=== PATIENT | female | born 1950 | race African-American/Black ===

== ENCOUNTER 2016-06-04 15:14 | Inpatient (IN) | payer OTHER ==
[2016-06-04] MEDS: NORCO-7.5 PO PRN (20:15)
[2016-06-04] MEDS: NEURONTIN PO SCH (20:15)
[2016-06-04] MEDS: SOLU-MEDROL IV SCH (20:16)
[2016-06-04] MEDS: LEVAQUIN 500 MG/D5W 100 ML IV SCH (20:16)
[2016-06-04] MEDS: NS 1,000 ML IV SCH (20:16)
[2016-06-04] MEDS: ROCEPHIN 1 GM/NS 50 ML IV SCH (20:16)
[2016-06-04] MEDS: LOVENOX SUBQ SCH (20:16)
[2016-06-04] MEDS: PROTONIX IV SCH (20:16)
[2016-06-04 20:23] LABS: ALLEN TEST YES; BE 0.9 mmoll (-3.0-3.0); BLOOD TYPE ARTERIAL; DRAW SITE R RADIAL; METHB 1.8 % (0.0-1.5); O2(CT) 19.2 mL/dL (15.0-23.0); PCO2(98.6) 39 mmHg (35-45); PO2(98.6) 72 mmHg (60-100); SAMPLE BLOOD; SAO2 97.7 % (95.0-100.0); THB 14.6 g/dL (11.5-17.4); pH(98.6) 7.42 (7.35-7.45)
[2016-06-04 20:24] LABS: MODALITY ROOM AIR
[2016-06-04] MEDS: DUONEB (A & A) INH PRN (20:25)
--- NOTE | 2016-06-04 21:32 | HISTORY AND PHYSICAL ---
CHIEF COMPLAINT: Cough. Congestion. Upper respiratory infection symptoms for the last 2 days. HISTORY OF PRESENT ILLNESS: She is a 65-year-old female recently seen in our office yesterday for URI symptoms. Initial chest x-ray was clear. She was given steroid shot followed by Rocephin shot. She fails to improve, was brought in. She is not able to walk and exertional shortness of breath, cough, and wheezing. Followup chest x-ray, questionable infiltrate. Since she failed with outpatient medical management, admitted to the hospital for aggressive medical management. She also waiting for flu test. In my office, she is tachycardic, no fever. Pulse oximetry 96%. She was brought in the wheelchair. As a result, a hospital admission was warranted. PAST MEDICAL HISTORY: 1. Allergic rhinitis. 2. Metabolic syndrome. 3. Type 2 diabetes, diet controlled. 4. Hypertension. 5. Acid reflux disease. 6. Vitamin D deficiency. 7. Chronic back pain. PAST SURGICAL HISTORY: Umbilical hernia repair, right knee arthroscopy, back surgery 2004, C- spine surgery, left shoulder surgery, total knee arthroplasty on the left side. MEDICATIONS: Ambien, Flexeril 10 mg daily, Flonase, Levaquin, losartan 50 daily , [place] 10 as needed, Protonix 40 daily, Proventil as needed. ALLERGIES: Not known. SOCIAL HISTORY: Lives in [place]. No smoking. No alcohol. Retired. Single. 3 children. FAMILY HISTORY: Mother of asthma attack at 55. Father of old age problems. HEALTH MAINTENANCE: Last mammography, March 2015, DEXA scan March 2015, Pap smear [address] Winslow, declined influenza vaccine. REVIEW OF SYSTEMS: HEENT: Headache, sinus problems, earache, postnasal drainage. Neck: No goiter. No lymphadenopathy. No bruit. Cardiopulmonary: Wheezing, shortness of breath. No chest pain. No lumps in the breast. GI: No nausea, vomiting, abdominal pain. : No history of hesitancy, frequency. Musculoskeletal: Chronic back pain, on pain clinic. Extremities: No swelling of feet. History of joint pains. Neurologic: No focal symptoms or weakness. PHYSICAL EXAMINATION: VITAL SIGNS: Afebrile, tachycardic. GENERAL: Slightly heavyset. Not in respiratory distress. HEENT: Atraumatic, normocephalic. TMs are normal. Nose and throat congested. NECK: Supple. No goiter. JVD is normal. CHEST: Bilateral wheezing, crackles in the right base. Not able to take a deep breath. HEART: Sounds are tachycardic. No murmur. ABDOMEN: Belly is soft, obese, nontender. Good bowel sounds. No masses palpable. No peripheral edema, cyanosis, clubbing. NEUROLOGIC: Nonfocal. INVESTIGATIONS: ABG: PO2 72 on room air. CBC, SMA 7 is normal. Chest x-ray, early infiltrate in the right lower lobe. Rest of the labs are pending. Flu test was pending. ASSESSMENT AND PLAN: 1. A 65-year-old female, admitted to the hospital basically for URI symptoms. Not able to improve. Early bronchopneumonia, rule out flu. Follow up on the pending labs. Plan is oxygen as needed, bronchodilators, IV steroids, IV antibiotics. 2. Type 2 diabetes, diet controlled. Follow up on sliding scale with insulin coverage. 3. Deep venous thrombosis, gastrointestinal prophylaxis with Lovenox and Protonix respectively. 4. Reconcile home medications and we will follow up on the clinical course. [facility] H[facility]ITALKrissy
[2016-06-04 21:34] LABS: MANUAL DIFF NEEDED? NO
[2016-06-04 21:37] LABS: BASO% 0.2 % (0.0-0.8); HEMATOCRIT 40.7 % (37.0-47.0); HEMOGLOBIN 13.7 g/dL (12.0-16.0); IMM GRAN# 0.02 X1000 (0.0-0.04); IMM GRAN% 0.3 % (0.0-0.5); LYMPH# 0.97 X1000 (1.2-3.4); MCH 29.4 PG (27-31); MCHC 33.7 g/dL (33-37); MCV 87.3 FL (81-99); MONO# 0.13 X1000 (0.11-0.59); MPV 11.8 FL (7.4-10.4); NEUT% 82.5 % (42.2-75.2); PLT 196 X1000 (130-400); RBC 4.66 XMIL (4.2-5.4)
[2016-06-04 21:54] LABS: HEMOGLOBIN A1C 6.9 % (4.8-6.0)
[2016-06-04 22:15] LABS: AGAP 16; ALBUMIN 4.3 g/dL (3.5-5.0); ALKALINE PHOSPHATASE 71 U/L (32-104); BUN 11 mg/dL (8-22); CHLORIDE 102 mmol/L (98-107); COSMO 284; GOT 23 U/L (10-30); GPT 19 U/L (10-36); POTASSIUM 3.8 mmol/L (3.5-5.1); SODIUM 140 mmol/L (136-145); TCO2 22 mmol/L (25-35); TOTAL BILIRUBIN 0.15 mg/dL (0.20-1.00); TOTAL PROTEIN 7.3 g/dL (6.3-8.3)
[2016-06-05] MEDS ORDERED: AMBIEN PO ONE (00:01)
[2016-06-05] MEDS: SOLU-MEDROL IV SCH ×4 (03:23→21:57)
--- NOTE | 2016-06-05 05:18 | EKG Report ---
Test Performed on : 06/04/2016 9:12:28 PM Test Reason : chest pain Blood Pressure : / mmHG Vent. Rate : 110 BPM Atrial Rate : 110 BPM P-R Int : 164 ms QRS Dur : 086 ms QT Int : 344 ms P-R-T Axes : 049 019 -29 degrees QTc Int : 465 ms Sinus tachycardia. Cannot rule out Inferior infarct , age undetermined Abnormal ECG When compared with ECG of 21-JUN-2015 08:26, Minimal criteria for Inferior infarct are now present Nonspecific T wave abnormality, worse in Inferior leads Nonspecific T wave abnormality now evident in Anterolateral leads Confirmed by Josue Fontana MD ([id number]) on 06/05/2016 11:06:27 AM
[2016-06-05] MEDS: HUMALOG SUBQ SCH ×5 (06:36→23:13)
--- NOTE | 2016-06-05 07:33 | Diag Imaging Result Document ---
PROCEDURE NAME: CHEST-2 VIEWS - 06/05/2016 FRONTAL AND LATERAL CHEST, TWO VIEWS: COMPARISON: 06/21/2015. FINDINGS: The lungs are well expanded. The heart is not enlarged. The vessels are not distended. There are no infiltrates. No pleural effusions. There is a calcified left hilar lymph node. IMPRESSION: No acute abnormality.
[2016-06-05] MEDS: NS 1,000 ML IV SCH ×2 (08:17→21:58)
[2016-06-05] MEDS: DUONEB (A & A) INH PRN ×2 (09:26→19:56)
[2016-06-05] MEDS: LEVAQUIN 500 MG/D5W 100 ML IV SCH (10:10)
[2016-06-05] MEDS: NEURONTIN PO SCH ×2 (10:53→21:57)
[2016-06-05] MEDS: CULTURELLE PO SCH (10:53)
[2016-06-05] MEDS ORDERED: ROBITUSSIN-DM PO PRN (11:45)
[2016-06-05] MEDS: NORCO-7.5 PO PRN (12:38)
[2016-06-05] MEDS ORDERED: SODIUM CHLORIDE 0.9% INJ PRN (16:44)
[2016-06-05] MEDS: GLUCOPHAGE PO SCH (18:41)
[2016-06-05] MEDS: PHENERGAN IV PRN (18:42)
[2016-06-05] MEDS ORDERED: AMBIEN PO SCH (21:00)
[2016-06-05] MEDS: ROCEPHIN 1 GM/NS 50 ML IV SCH (21:55)
[2016-06-05] MEDS: SODIUM CHLORIDE 0.9% INJ SCH (21:56)
[2016-06-05] MEDS: AMBIEN PO PRN (21:57)
[2016-06-05] MEDS: PROTONIX IV SCH (21:57)
[2016-06-05] MEDS: LOVENOX SUBQ SCH (21:57)
[2016-06-05 23:55] LABS: CK INDEX 1.1 (0.0-2.5); CK-MB 1.93 ng/mL (0.0-5.0)
[2016-06-06] MEDS: SOLU-MEDROL IV SCH ×3 (04:51→21:00)
[2016-06-06] MEDS: HUMALOG SUBQ SCH ×3 (06:37→18:52)
[2016-06-06] MEDS: NEURONTIN PO SCH ×2 (08:27→20:59)
[2016-06-06] MEDS: CULTURELLE PO SCH (08:27)
[2016-06-06] MEDS: GLUCOPHAGE PO SCH ×2 (08:27→16:38)
[2016-06-06] MEDS: LEVAQUIN 500 MG/D5W 100 ML IV SCH ×2 (08:28→11:56)
[2016-06-06] MEDS: DUONEB (A & A) INH PRN ×3 (09:44→22:52)
[2016-06-06 10:21] LABS: CK-MB 2.14 ng/mL (0.0-5.0)
[2016-06-06] MEDS ORDERED: MBX SOLUTION MT SCH (11:45)
[2016-06-06] MEDS: NS 1,000 ML IV SCH ×2 (11:57→22:34)
--- NOTE | 2016-06-06 12:09 | PROGRESS NOTE ---
DATE: 06/06/2016 SUBJECTIVE: A 65-year-old, female patient admitted with chest congestion, cough, wheezing, chest soreness when she coughs. Not responding to outpatient treatment. The patient is on IV antibiotics. Pulmonary toilet. The patient is feeling some better. The patient is still have some wheezing, heartburn. She did have mild nausea. No vomiting. No diarrhea, blood, or mucus in the stool. She does have a history of reflux. No dysuria or hematuria. PAST MEDICAL HISTORY: 1. Significant for hypertension. 2. Non-insulin dependent diabetes mellitus 3. Gastritis and reflux disease. 4. Vitamin D deficiency. 5. Allergic rhinitis. 6. Metabolic syndrome. Chronic low back pain. OBJECTIVE: Vital Signs: Vital signs reviewed. General: Neck is supple. No JVD. Lungs: Bilateral good air entry present. Occasional wheezing. Cardiovascular: S1 and S2 heard. Abdomen: Soft, globular. Bowel sounds present. Extremities: No cyanosis, clubbing. No acute DVT. Central Nervous System: Alert, awake, able to move all 4 limbs. CONSIDERATION: 1. Acute asthmatic bronchitis. We will continue IV antibiotics. Steroids. Pulmonary toilet. 2. Gastritis and reflux disease. I am going to add Magic mouthwash. 3. Non-insulin dependent diabetes mellitus. 4. Hypertension. 5. Hyperlipidemia. Her admission labs and chest x-ray results reviewed. I am going to repeat blood work in the morning. Continue rest of the treatment and close observation. PLAN: Overall plan discussed with the patient and she is in agreement.
[2016-06-06] MEDS: PHENERGAN IV PRN (16:38)
[2016-06-06 16:45] LABS: CK INDEX 1.1 (0.0-2.5); CK-MB 2.51 ng/mL (0.0-5.0)
[2016-06-06] MEDS: SODIUM CHLORIDE 0.9% INJ SCH (21:00)
[2016-06-06] MEDS: ROCEPHIN 1 GM/NS 50 ML IV SCH (21:00)
[2016-06-06] MEDS: PROTONIX IV SCH (21:01)
[2016-06-06] MEDS: LOVENOX SUBQ SCH (21:01)
[2016-06-06] MEDS: AMBIEN PO PRN (21:17)
[2016-06-07] MEDS: HUMALOG SUBQ SCH ×5 (00:37→21:30)
[2016-06-07] MEDS: SOLU-MEDROL IV SCH ×3 (04:31→20:14)
[2016-06-07 07:41] LABS: AGAP 13; ALBUMIN 3.7 g/dL (3.5-5.0); ALKALINE PHOSPHATASE 71 U/L (32-104); BUN 15 mg/dL (8-22); CALCIUM 8.7 mg/dL (8.8-10.2); CHLORIDE 104 mmol/L (98-107); COSMO 285; GOT 18 U/L (10-30); GPT 16 U/L (10-36); MAGNESIUM 2.1 mg/dL (1.5-2.7); POTASSIUM 4.3 mmol/L (3.5-5.1); SODIUM 140 mmol/L (136-145); TCO2 23 mmol/L (25-35); TOTAL BILIRUBIN 0.16 mg/dL (0.20-1.00); TOTAL PROTEIN 6.6 g/dL (6.3-8.3)
[2016-06-07 07:54] LABS: HEMATOCRIT 40.2 % (37.0-47.0); HEMOGLOBIN 13.7 g/dL (12.0-16.0); IMM GRAN# 0.03 X1000 (0.0-0.04); IMM GRAN% 0.2 % (0.0-0.5); LYMPH# 1.26 X1000 (1.2-3.4); LYMPH% 9.5 % (20.5-51.1); MANUAL DIFF NEEDED? YES; MCH 29.8 PG (27-31); MCHC 34.1 g/dL (33-37); MCV 87.4 FL (81-99); MONO# 0.34 X1000 (0.11-0.59); MONO% 2.6 % (1.7-9.3); MPV 12.4 FL (7.4-10.4); NEUT% 87.7 % (42.2-75.2); PLT 189 X1000 (130-400)
[2016-06-07 08:03] LABS: LYMPHS 6 % (21-51); MONO 2 % (1-9)
[2016-06-07] MEDS: CULTURELLE PO SCH (09:20)
[2016-06-07] MEDS: GLUCOPHAGE PO SCH ×2 (09:20→17:13)
[2016-06-07] MEDS: NEURONTIN PO SCH ×2 (09:20→20:14)
[2016-06-07] MEDS: LEVAQUIN 500 MG/D5W 100 ML IV SCH (09:21)
[2016-06-07] MEDS: NS 1,000 ML IV SCH (09:21)
--- NOTE | 2016-06-07 15:10 | PROGRESS NOTE ---
DATE: 06/07/2016 SUBJECTIVE: Ms Romero is doing fair. She still has cough, chest congestion, wheezing. Complaining of heartburn. No nausea or vomiting. She denied any diarrhea. Patient does have a problem with reflux. Patient had cardiac isoenzymes done yesterday and those were benign. The patient had an EKG done which revealed sinus rhythm with sinus arrhythmia. This was done on June 05. No acute ST-T wave changes. Her flu test done on June 04 was negative for. OBJECTIVE: Vital signs: Reviewed. Neck: Supple. No JVD. Lungs: Bilateral occasional wheezing. CVS: S1 and S2 heard. Abdomen: Soft. Mild epigastric tenderness. Extremities: No cyanosis, clubbing, edema. 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 Able to move all 4 limbs. LAB DATA: Done today, leukocyte count 13.33, hemoglobin 13.7, hematocrit 40.2, platelet count 189,000. Electrolytes were fairly benign. CONSIDERATION: 1. Acute asthmatic bronchitis. 2. Gastritis and reflux disease. 3. Noninsulin-dependent diabetes mellitus. 4. Hypertension. 5. Hyperlipidemia. PLAN: Will continue current treatment. With her vague chest pain I am going to get another set of cardiac isoenzymes. Will get GI consult with Dr. Rodrigues. Continue rest of the medication and close observation.
[2016-06-07] MEDS: PHENERGAN IV PRN (17:14)
[2016-06-07] MEDS: PROTONIX IV SCH (20:13)
[2016-06-07] MEDS: LOVENOX SUBQ SCH (20:13)
[2016-06-07] MEDS: SODIUM CHLORIDE 0.9% INJ SCH (20:13)
[2016-06-07] MEDS: ROCEPHIN 1 GM/NS 50 ML IV SCH (20:14)
[2016-06-07] MEDS ORDERED: ROCEPHIN IM ONE (23:40)
[2016-06-07] MEDS ORDERED: XYLOCAINE-MPF 1% INJ ONE (23:40)
[2016-06-08] MEDS: AMBIEN PO PRN ×2 (00:42→21:58)
--- NOTE | 2016-06-08 04:17 | CONSULTATION ---
DATE OF CONSULTATION: 06/07/2016 REFERRING PHYSICIAN: Madhav Farah MD. INDICATION FOR CONSULTATION: 1. Dysphagia. 2. Heartburn. 3. Nausea. 4. Epigastric pain. 5. History of colon polyps. HISTORY OF PRESENT ILLNESS: The patient is a very pleasant, 65-year-old, female who was initially evaluated in our office on 05/26/2016 for the above concerns. At that time, she was experiencing severe reflux that had become progressively worse, acute dysphagia, severe heartburn, nausea but no vomiting, and has a history of colon polyps. She was scheduled to undergo an outpatient EGD, colonoscopy, and have a gastric emptying study performed. However, she was admitted with pneumonia. Her GI symptoms have become progressively worse. We were asked to evaluate her this admission. PAST MEDICAL HISTORY: 1. Asthma. 2. Diabetes. 3. Hypertension. PAST SURGICAL HISTORY: 1. Back surgery. 2. Cholecystectomy. 3. Hernia repair. 4. Knee surgery. 5. Neck surgery. 6. Birgit fundoplication. 7. Shoulder surgery. 8. Tubal ligation. MEDICATION ALLERGIES: None. HOME MEDICATIONS: 1. Ambien. 2. Prevacid. 3. [place] 7.5. 4. Neurontin. 5. Albuterol inhaler. 6. Albuterol nebulizer at home as needed. SOCIAL HISTORY: Negative for alcohol, tobacco, or recreational drug use. She has 3 adult children including our patient, . REVIEW OF SYSTEMS: Remarkable for the above symptoms, notably hoarseness and dysphagia. FAMILY HISTORY: Noncontributory. There is no family history of colon cancer. PHYSICAL EXAMINATION: Vital Signs: Her blood pressure is 154/87, pulse is 68, respirations 16, temperature of 97.9 degrees. HEENT: Negative for oropharyngeal mucosal membrane lesions. Her voice is hoarse and she has a nonproductive cough. Pulmonary Examination: She has end expiratory wheezes consistent with her diagnosis of pneumonia and asthma. Cardiovascular Examination: She has regular rate and rhythm with no gallops or rubs. Abdominal Examination: Reveals normoactive bowel sounds. The abdomen is soft with epigastric tenderness but no rebound or guarding. Extremities: Bilaterally are negative for cyanosis, clubbing, or edema. OBJECTIVE DATA: Reveals a hemoglobin of 13.7, with hematocrit of 40.2, and a white count of 13.3. She has 189,000 platelets. Sodium is 140, potassium 4.3, chloride 101, CO2 of 23, BUN 15, creatinine 0.9, with a glucose of 188. Calcium is 8.9. Magnesium 2.1. Total bilirubin is 0.16, AST 18, ALT 16, alkaline phosphatase 71. Normal troponin and CKs. Her total protein is 6.7, with an albumin of 3.7. IMPRESSION: As above. RECOMMENDATION: 1. Please obtain a gastric emptying study on Wednesday. On Wednesday, I recommend that she have a modified barium swallow. These 2 functional studies will allow us to determine if she needs an EGD with dilation or if she is having diffuse esophageal spasm that may account for her dysphagia and epigastric pain. 2. I will plan to perform an EGD and colonoscopy on Wednesday. If she is clinically better, this can be scheduled as an outpatient. However, my concern is that she was admitted with pneumonia after having increase in her reflux symptoms. This may represent aspiration which should be clarified as soon as possible. 3. Continue Protonix as you are doing. 4. She will need to hold her Lovenox on Wednesday in anticipation of endoscopy on Wednesday. 5. Continue Culturelle. 6. Additional recommendations to follow based on her clinical course.
[2016-06-08] MEDS: NS 1,000 ML IV SCH ×3 (05:07→23:40)
[2016-06-08] MEDS: SOLU-MEDROL IV SCH ×3 (05:07→21:41)
[2016-06-08] MEDS: HUMALOG SUBQ SCH ×4 (06:27→23:39)
--- NOTE | 2016-06-08 07:43 | EKG Report ---
Test Performed on : 06/05/2016 4:41:12 PM Test Reason : chest pain Blood Pressure : / mmHG Vent. Rate : 072 BPM Atrial Rate : 072 BPM P-R Int : 152 ms QRS Dur : 088 ms QT Int : 368 ms P-R-T Axes : 036 003 016 degrees QTc Int : 402 ms Normal sinus rhythm. with sinus arrhythmia. Nonspecific T wave abnormality Abnormal ECG When compared with ECG of 04-JUN-2016 21:12, Vent. rate has decreased BY 38 BPM Nonspecific T wave abnormality no longer evident in Anterior leads QT has shortened Confirmed by Addi BHAKTA, MDimple Dixon ([id number]) on 06/09/2016 8:34:51 AM
[2016-06-08] MEDS: NEURONTIN PO SCH ×2 (09:12→21:42)
[2016-06-08] MEDS: GLUCOPHAGE PO SCH ×2 (09:12→17:03)
[2016-06-08] MEDS: LEVAQUIN 500 MG/D5W 100 ML IV SCH (09:12)
[2016-06-08] MEDS: CULTURELLE PO SCH (09:12)
--- NOTE | 2016-06-08 11:21 | PROGRESS NOTE ---
DATE: 06/08/2016 SUBJECTIVE: Ms. Romero has upper respiratory infection with pneumonia. OBJECTIVE: Vital Signs: Her vital signs are stable. She has some persistent cough and that is giving her lower abdominal pain. Her lungs still sound congested. We will continue the IV Levaquin. -8
[2016-06-08] MEDS: PHENERGAN IV PRN (11:50)
[2016-06-08] MEDS: DUONEB (A & A) INH PRN (21:35)
[2016-06-08] MEDS: SODIUM CHLORIDE 0.9% INJ SCH (21:41)
[2016-06-08] MEDS: PROTONIX IV SCH (21:41)
[2016-06-08] MEDS: LOVENOX SUBQ SCH (21:42)
[2016-06-08] MEDS: ROCEPHIN 1 GM/NS 50 ML IV SCH (21:42)
[2016-06-09] MEDS: NS 1,000 ML IV SCH ×3 (04:56→23:03)
[2016-06-09] MEDS: SOLU-MEDROL IV SCH ×3 (04:56→23:05)
[2016-06-09] MEDS: LEVAQUIN 500 MG/D5W 100 ML IV SCH (09:53)
[2016-06-09] MEDS: HUMALOG SUBQ SCH ×4 (10:52→23:06)
[2016-06-09] MEDS ORDERED: GOLYTELY PO ONE (14:00)
[2016-06-09] MEDS: GLUCOPHAGE PO SCH ×2 (15:48→16:24)
[2016-06-09] MEDS: NEURONTIN PO SCH ×2 (15:48→23:06)
[2016-06-09] MEDS: CULTURELLE PO SCH (15:48)
--- NOTE | 2016-06-09 15:50 | Diag Imaging Result Document ---
PROCEDURE NAME: GASTRIC EMPTYING - 06/09/2016 GASTRIC EMPTYING: PROCEDURE: Exam performed using 578 microcuries Tc99m sulfur colloid administered p.o. in egg sandwich (solid food). The gastric emptying halftime is 113 minutes. This is beyond the normal range of 40 to 90 minutes for gastric emptying halftime. IMPRESSION: Slower than normal gastric emptying with gastric emptying halftime of 113 minutes. [facility]
--- NOTE | 2016-06-09 16:00 | Diag Imaging Result Document ---
PROCEDURE NAME: BA SWALLOW W/VIDEO SPEECH THER - 06/09/2016 MODIFIED BARIUM SWALLOW: COMPARISON: None available. FINDINGS: Upon swallowing barium of thin liquid as well as pudding consistency, there is a small extrinsic filling defect at the posterior aspect of the upper esophagus at about the C5 level consistent with cricopharyngeus hypertrophy. There is also mild irregularity at the same level at the ventral aspect of the esophagus suggesting a possible small esophageal web. There is no evidence of airway penetration or aspiration. Limited views of the distal esophagus reveal tertiary contractions suggesting dysmotility. IMPRESSION: 1. 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 2. Tertiary contractions involving the distal esophagus suggesting mild dysmotility. 3. Please see speech pathology report for full details.
[2016-06-09] MEDS: AMBIEN PO PRN (23:03)
[2016-06-09] MEDS: ROCEPHIN 1 GM/NS 50 ML IV SCH (23:04)
[2016-06-09] MEDS: PROTONIX IV SCH (23:05)
[2016-06-09] MEDS: SODIUM CHLORIDE 0.9% INJ SCH (23:05)
[2016-06-09] MEDS: LOVENOX SUBQ SCH (23:06)
[2016-06-10] MEDS: SOLU-MEDROL IV SCH ×2 (04:16→15:23)
[2016-06-10] MEDS: HUMALOG SUBQ SCH ×4 (06:32→22:29)
[2016-06-10] MEDS ORDERED: MYLICON DROPS (DOSE) MISC ONE (07:19)
[2016-06-10] MEDS ORDERED: ZOFRAN IV ONE (07:29)
[2016-06-10 08:35] LABS: SPECIMEN GASTRIC FLUID
[2016-06-10] MEDS ORDERED: FENTANYL ONE (08:53)
[2016-06-10] MEDS ORDERED: DIPRIVAN 1% ONE (08:54)
[2016-06-10] MEDS ORDERED: SODIUM CHLORIDE 0.9% INJ SCH (09:01)
[2016-06-10] MEDS ORDERED: CARAFATE LIQUID PO SCH (09:01)
[2016-06-10] MEDS: GLUCOPHAGE PO SCH ×2 (09:43→18:35)
[2016-06-10] MEDS: NEURONTIN PO SCH ×2 (09:58→22:21)
[2016-06-10] MEDS: CULTURELLE PO SCH (09:58)
[2016-06-10] MEDS: PROTONIX IV SCH ×2 (09:59→15:23)
[2016-06-10] MEDS: MYCOSTATIN SUSP PO SCH ×4 (09:59→22:23)
[2016-06-10] MEDS: LEVAQUIN 500 MG/D5W 100 ML IV SCH (09:59)
--- NOTE | 2016-06-10 10:08 | OPERATIVE NOTE ---
PROCEDURE DATE: 06/10/2016 DATE OF PROCEDURE: 06/10/2016. REFERRING PHYSICIAN: Dr. Emilie Reyes. INDICATIONS FOR PROCEDURE: 1. Dysphagia. 2. Heartburn. 3. GERD. 4. Cricopharyngeal achalasia on modified barium swallow. 5. Diffuse esophageal spasm on modified barium swallow. 6. Pneumonia, possible aspiration. PROCEDURE PERFORMED: Esophagogastroduodenoscopy with biopsy. CONSENT: Informed consent was obtained from the patient prior to the procedure. The risks, benefits, and alternatives were discussed. MEDICATION: The patient received monitored anesthesia care. PERFORMING PHYSICIAN: Maria Luisa Rodrigues MD. ASSISTANTS: 1. RAMON Obrien. 2. Senait Marvin RN. 3. Jamila Zaldivar CRNA. 4. Link Wright MD (anesthesia). COMPLICATIONS: There were no complications. ESTIMATED BLOOD LOSS: Less than 1 mL. SPECIMENS REMOVED: 1. Gastric biopsy. 2. Gastric fluid for gastric pH testing. FINDINGS: After sedation was achieved, the upper endoscope was inserted to the second portion of the duodenum. In the oropharynx, there was thrush noted on the posterior aspect of the tongue. The hypopharynx appeared grossly normal. There was moderate resistance upon intubating the upper esophageal sphincter. The sphincter was dilated with passage of the scope. There was a small amount of heme, but no active bleeding. The tubular esophagus appeared grossly normal. There was no Vernon's esophagus or masses seen. There were no ulcers appreciated. The GE junction appeared grossly normal at 35 cm. There was a hiatal hernia that spanned from 35-40 cm. On insertion there was a possible Schatzki's ring that was not demonstrated after insufflation. In the gastric lumen, there was severe erosive gastritis. There was a large 10-15 mm stellate ulcer in the mid gastric body with a whitish base. There was no stigmata of bleeding. There were 4 smaller ulcers in the antrum that ranged in size from 5-15 mm that were superficial with whitish bases and no stigmata of bleeding. On retroflexed view, the fundus was remarkable for gastritis, but was otherwise normal. There were no gastric varices present. On forward view, the pylorus appeared endoscopically normal. There was mild duodenitis in the first and second portions of the duodenum. The ampulla of Vater appeared grossly normal. Biopsies were taken from the gastric lumen and fluid was aspirated for gastric pH testing. After the exam was complete, the lumen was decompressed and the scope was removed without incident. IMPRESSION: 1. Oral thrush. 2. Cricopharyngeal achalasia status post dilation of the upper esophageal sphincter with the scope. 3. Hiatal hernia. 4. Severe erosive gastritis. 5. Multiple gastric ulcers in the body and the antrum, status post biopsy. 6. Mild duodenitis. RECOMMENDATION: 1. Await biopsy results. 2. Increase Protonix to 40 mg IV q. 12 hours. 3. Begin Carafate suspension 1 g 4 times a day while she is an inpatient. I would continue this as an outpatient, but transition to the tablet for outpatient use. She should complete a 12- week course and then stop. 4. Begin Nystatin swish and swallow 5 mL p.o. 4 times a day. 5. Because biopsies were taken, please hold the Lovenox for 72 hours and then resume as indicated. I will order compression hoses in the antrum. 6. We will proceed with a colonoscopy as previously scheduled. 7. Please see colonoscopy report for additional recommendations.
--- NOTE | 2016-06-10 10:40 | OPERATIVE NOTE ---
PROCEDURE DATE: 06/10/2016 REFERRING PHYSICIAN: Emilie Reyes MD. INDICATIONS FOR PROCEDURE: 1. History of colon polyps. 2. Heme-positive stools in the outpatient clinic. PROCEDURE PERFORMED: Colonoscopy with control of bleeding. CONSENT: Informed consent was obtained from the patient prior to the procedure. The risks, benefits, and alternatives were discussed. MEDICATION: The patient received monitored anesthesia care. PERFORMING PHYSICIAN: Maria Luisa Rodrigues MD. ASSISTANTS: 1. [facility] 2. Senait Marvin RN. 3. Jamila Zaldivar CRNA. 4. Link Wright MD (anesthesia). COMPLICATIONS: There were no complications. ESTIMATED BLOOD LOSS: Less than 1 mL. SPECIMENS REMOVED: None. CECAL INTUBATION TIME: 5 minutes. WITHDRAWAL TIME: 14 minutes. PREP QUALITY: Poor due to stool and barium from previous modified barium swallow. FINDINGS: After sedation was achieved, the pediatric colonoscope was inserted to the cecum. The appendiceal orifice and ileocecal valve appeared grossly normal. The cecum appeared grossly normal within the limits of the prep. Upon withdrawal of the scope, there was an actively bleeding AVM in the ascending colon that was cauterized. In the transverse colon, there was diverticulosis with no evidence of diverticulitis. Diverticulosis was present from the transverse colon to the rectosigmoid colon. There was no evidence of active inflammation. The mucosa appeared normal except for scattered nonbleeding AVMs in the left colon. In the upper rectum, there were grade 1 internal hemorrhoids. On retroflexed view, there were small external hemorrhoids. It should be noted that fecal residue and barium coated approximately 20 to 30% of the lumen, limiting the quality of the procedure. After the exam was complete, the lumen was decompressed and the scope was removed without incident. IMPRESSION: 1. Poor prep. 2. 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 3. Diverticulosis. 4. Grade 1 internal hemorrhoids. 5. Small external hemorrhoids. RECOMMENDATION: 1. Continue to hold the Lovenox for the next 72 hours. She may have SCD compression hoses for DVT prophylaxis. 2. I recommend a high-fiber diet in light of the presence of diverticulosis. 3. I would repeat her colonoscopy in 1 year in light of the prep. 4. We will have the patient return to clinic in 4 weeks to assess interval progress. 5. Please see the EGD report for additional details.
[2016-06-10] MEDS ORDERED: XYLOCAINE-MPF 2% ONE (10:55)
[2016-06-10] MEDS ORDERED: LR 1,000 ML ONE (10:55)
[2016-06-10] MEDS ORDERED: ANESTHESIA PB SET 88 IN 5742 ONE (10:55)
[2016-06-10] MEDS: CARAFATE LIQUID PO SCH ×3 (11:24→22:20)
[2016-06-10] MEDS: NS 1,000 ML IV SCH (15:22)
[2016-06-10] MEDS: AMBIEN PO PRN (22:21)
[2016-06-10] MEDS: ROCEPHIN 1 GM/NS 50 ML IV SCH (22:21)
[2016-06-10] MEDS: LOVENOX SUBQ SCH (22:22)
[2016-06-11] MEDS: CARAFATE LIQUID PO SCH (03:26)
[2016-06-11 06:39] LABS: MANUAL DIFF NEEDED? NO
[2016-06-11 07:07] LABS: BASO% 0.1 % (0.0-0.8); EOS# 0.38 X1000 (0.0-0.7); HEMATOCRIT 40.6 % (37.0-47.0); HEMOGLOBIN 13.9 g/dL (12.0-16.0); IMM GRAN# 0.05 X1000 (0.0-0.04); IMM GRAN% 0.5 % (0.0-0.5); LYMPH# 4.11 X1000 (1.2-3.4); LYMPH% 43.6 % (20.5-51.1); MCH 29.6 PG (27-31); MCHC 34.2 g/dL (33-37); MCV 86.6 FL (81-99); MONO# 0.76 X1000 (0.11-0.59); MONO% 8.1 % (1.7-9.3); MPV 12.4 FL (7.4-10.4); NEUT% 43.7 % (42.2-75.2); PLT 166 X1000 (130-400); RBC 4.69 XMIL (4.2-5.4)
[2016-06-11 08:51] VITALS: BP 130/90
[2016-06-11] MEDS: GLUCOPHAGE PO SCH (09:25)
[2016-06-11] MEDS: CULTURELLE PO SCH (09:25)
[2016-06-11] MEDS: NEURONTIN PO SCH (09:25)
[2016-06-11] MEDS: MYCOSTATIN SUSP PO SCH (09:28)
--- NOTE | 2016-06-13 22:55 | DISCHARGE SUMMARY ---
ADMISSION DATE: 06/04/2016 DISCHARGE DATE: 06/11/2016 DISCHARGING DIAGNOSIS: Acute upper respiratory infection with bronchitis. SECONDARY DIAGNOSIS: 1. Chest pain was atypical. 2. Allergic rhinitis. 3. Type 2 diabetes. A1c 6.6. 4. Hypertension. 5. Vitamin D deficiency. 6. Chronic pain. 7. Dysphagia due to Schatzki's ring dilatation, followed by ulcer disease. CONSULTS: Dr. Maria Luisa Rodrigues. PROCEDURES: 1. EGD. Dilatation of cricopharyngeal sphincter. Schatzki's ring dilatation. Ulcer disease in her stomach. 2. Colonoscopy, negative except small bleeding AVM cauterized. BRIEF HISTORY: In brief, she is a 65-year-old, female, who was admitted to the hospital after failure to be treated with outpatient URI symptoms. She was in a wheelchair, wheezing, some crackles in the right base. Chest x-ray consistent with bronchitis. HOSPITAL COURSE: 1. She was given oxygen, bronchodilators, IV steroids, IV antibiotics. 2. Blood sugar slightly running high and controlled with diet and sliding scale. 3. Ancillary support: GI prophylaxis with Protonix, Lovenox for DVT. 4. She complains of chest pain, which is atypical. EKG cardiac enzymes were normal. She has intermittent dysphagia nausea. As a result, a GI consult was obtained. Dr. Rodrigues performed a modified barium swallow study, and also gastric emptying study, followed by EGD and colonoscopy. Findings were reassuring. LABORATORIES: CBC: White cell count 9.4, hematocrit 40, platelets 166,000. ABG on room air pH is 7.42, pCO2 of 39, PO2 of 72. SMA 7: Sodium 140, potassium 4.3, chloride 104 , BUN 15, creatinine 0.9, glucose 188. Calcium 8.7. Magnesium and cardiac enzymes were normal. ProBNP 70. Chest x-ray was stable. Gastric emptying study,slightly slower than normal. Colonoscopy: Diverticulosis and hemorrhoids and bleeding AVM's cauterized. EGD. Her dilatation of Schatzki's ring. DISCHARGE INSTRUCTIONS: Ambien 5 mg as needed for sleep, DuoNeb nebulizers q.6 as needed, Prevacid 30 mg in the morning, Neurontin 300 p.o. b.i.d., Robitussin DM 1 teaspoon q.4 hours as needed, [place] 7.5 q.6 as needed, Culturelle 1 tablet daily, metformin 500 p.o. b.i.d., Levaquin 500 mg daily for 7 days, Phenergan for nausea. FOLLOWUP: Follow up in my office next week. MTDD
== END 2016-06-11 11:00 | disposition home or self-care (01) | DRG 152 ==
LOC: DIRADM 15:14 → 3N 15:49
PROVIDERS: ADMIT Internal Medicine; ATTEND Internal Medicine
PROC: 0DB68ZX Excision of Stomach, Via Natural or Artificial Opening Endoscopic, Diagnostic (ICD-10-PCS; principal; 2016-06-10 07:03)
PROC: 0W3P8ZZ Control Bleeding in Gastrointestinal Tract, Via Natural or Artificial Opening Endoscopic (ICD-10-PCS; 2016-06-10 07:03)
PROC: 0D758ZZ Dilation of Esophagus, Via Natural or Artificial Opening Endoscopic (ICD-10-PCS; 2016-06-10 07:03)
DX: J06.9 Acute upper respiratory infection, unspecified (principal); K29.71 Gastritis, unspecified, with bleeding; K55.21 Angiodysplasia of colon with hemorrhage; B37.0 Candidal stomatitis; K25.4 Chronic or unspecified gastric ulcer with hemorrhage; K57.31 Diverticulosis of large intestine without perforation or abscess with bleeding; E88.81 Metabolic syndrome and other insulin resistance; E11.65 Type 2 diabetes mellitus with hyperglycemia; K29.81 Duodenitis with bleeding; J40 Bronchitis, not specified as acute or chronic; K22.0 Achalasia of cardia; J45.909 Unspecified asthma, uncomplicated; K22.2 Esophageal obstruction; K64.8 Other hemorrhoids; I10 Essential (primary) hypertension; K21.9 Gastro-esophageal reflux disease without esophagitis; E55.9 Vitamin D deficiency, unspecified; G89.29 Other chronic pain; M54.9 Dorsalgia, unspecified; Z79.899 Other long term (current) drug therapy; Z79.51 Long term (current) use of inhaled steroids; K44.9 Diaphragmatic hernia without obstruction or gangrene; E78.5 Hyperlipidemia, unspecified; K64.4 Residual hemorrhoidal skin tags
CPT/HCPCS: 71020; 74230; 78264; 80053; 82550; 82553; 82805; 82948; 83036; 83735; 83880; 83986; 84484; 84550; 85025; 87804; 88305; 88312; 93005; 93010; 94640; 94761; A9541; C9113; J0696; J1650; J1815; J2405; J2550; J2920; J2930; J3010; J7030; J7120; 92611-GN; S0164

== ENCOUNTER 2016-11-26 17:34 | Inpatient (IN) ==
[2016-11-26] MEDS ORDERED: DILAUDID IM ONE (18:42)
[2016-11-26] MEDS ORDERED: PHENERGAN IM ONE (18:42)
[2016-11-26] MEDS ORDERED: ZOFRAN ONE (19:20)
[2016-11-26 19:22] LABS: MANUAL DIFF NEEDED? NO
[2016-11-26 19:23] LABS: BASO% 0.3 % (0.0-0.8); EOS% 6.3 % (0.0-10.0); HEMATOCRIT 42.2 % (37.0-47.0); HEMOGLOBIN 14.7 g/dL (12.0-16.0); IMM GRAN# 0.02 X1000 (0.0-0.04); IMM GRAN% 0.2 % (0.0-0.5); LYMPH% 31.3 % (20.5-51.1); MCH 29.8 PG (27-31); MCHC 34.8 g/dL (33-37); MCV 85.6 FL (81-99); MONO# 0.75 X1000 (0.11-0.59); MONO% 7.8 % (1.7-9.3); MPV 12.1 FL (7.4-10.4); NEUT% 54.1 % (42.2-75.2); PLT 214 X1000 (130-400); RBC 4.93 XMIL (4.2-5.4)
[2016-11-26] MEDS ORDERED: ZOFRAN IV ONE ×2 (19:27→21:55)
[2016-11-26 19:56] LABS: AGAP 4; ALBUMIN 4.7 g/dL (3.5-5.0); ALKALINE PHOSPHATASE 87 U/L (32-104); AMYLASE 114 U/L (20-200); BUN 6 mg/dL (8-22); CALCIUM 9.4 mg/dL (8.8-10.2); CHLORIDE 101 mmol/L (98-107); COSMO 288; GOT 20 U/L (10-30); GPT 17 U/L (10-36); LIPASE 15 U/L (13-60); POTASSIUM 3.7 mmol/L (3.5-5.1); SODIUM 144 mmol/L (136-145); TCO2 39 mmol/L (25-35); TOTAL PROTEIN 7.6 g/dL (6.3-8.3)
[2016-11-26] MEDS ORDERED: MORPHINE IV ONE (21:55)
[2016-11-26] MEDS ORDERED: NS + KCL 40 MEQ 1,000 ML IV SCH (21:56)
--- NOTE | 2016-11-26 22:20 | PROVIDER DOCUMENTATION ---
This chart was entered by Polly Nash Scribe, acting as scribe for Murphy Kraft CRNP. HPI-Abdominal Pain/GI Problem - General Chief Complaint: Abdominal Pain Stated Complaint: ABD PAIN Time Seen by Provider: 11/26/16 18:30 Source: patient Allergies/Adverse Reactions: Patient Allergies Allergy/AdvReac Type Severity Reaction Status Date / Time No Known Allergies Allergy Verified 02/04/16 00:44 Home Medications: Home Medication List Medication Instructions Recorded Confirmed Last Taken Type Albuterol Sulfate Inhaler 2 puff INH Q6H PRN PRN #1 inhaler 04/21/13 11/26/16 Rx [Ventolin Hfa] 2 PUFF Albuterol [Albuterol Neb] 2.5 mg INH [id number] 04/21/13 11/26/16 06/14/15 History 2.5 MG Lansoprazole [Prevacid] 30 mg PO QAM 06/21/15 11/26/16 02/03/16 History Albuterol 2.5MG/Ipratrop 0.5MG 3 ml INH Q6H PRN PRN #0 neb 06/11/16 11/26/16 Unknown Rx [Duoneb (A & A)] Gabapentin [Neurontin] 300 mg PO BID #0 capsule 06/11/16 11/26/16 11/26/16 09: 00 Rx Hydrocodone/APAP 7.5 mg/325 mg 1 each PO Q4-6H PRN PRN #0 tablet 06/11/16 Unknown Rx [[place]-7.5] Zolpidem [Ambien] 10 mg PO HS PRN PRN #0 tablet 06/11/16 11/26/16 11/25/16 23: 00 Rx - History of Present Illness-ABD Nature of Presenting Problems: 65 year old F presents to the ED with a cc of ABD pain and nausea with an onset of this afternoon around 1200. Pt states that she ate some potatoes and then some grapes. Pt states that pain began after eating the grapes. Abdominal Pain Onset Location: reports: epigastric, generalized abdomen Pain Radiation: reports: no radiation Quality of Pain: reports: aching Severity in ED: reports: moderate Timing: reports: still present Last BM: this morning Dark Stools Present?: reports: none noticed Bruising or Bleeding Gums?: No Similar Symptoms Previously?: No Recently seen or treated by another doctor?: No Review of Systems - Adult - REVIEW OF SYSTEMS - ADULT Constitutional: denies: chills, fever Eyes: reports: no symptoms reported Ears, Nose, Mouth & Throat: reports: no symptoms reported Cardiovascular: denies: chest pain, palpitations Respiratory: denies: cough, shortness of breath Gastrointestinal: reports: abdominal pain, nausea. denies: constipation, diarrhea, vomiting Genitourinary: reports: no symptoms reported Musculoskeletal: reports: no symptoms reported Integumentary: denies: skin sores/ulcer, skin thickening Neurological: reports: no symptoms reported Psychiatric: reports: no symptoms reported Endocrine: reports: no symptoms reported Hematologic/Lymphatic: reports: no symptoms reported Allergic/Immunologic: reports: no symptoms reported All Other Systems: Reviewed and Negative Past History - Adult - PAST MEDICAL HISTORY-ADULT Review of Records: reports: Nursing Assessment Review, Medications Reviewed Major Childhood Illnesses: reports: denies history Respiratory: reports: asthma Gastrointestinal: reports: GERD - PRIOR SURGERIES/PROCEDURES Surgical/Procedure History: reports: colonoscopy, cholecystectomy, tonsillectomy , hernia repair - IMMUNIZATION STATUS Childhood Immunizations: See Nurse Assessment Flu Vaccine: See Nurse Assessment - FAMILY HISTORY Family History: reviewed, not pertinent - SOCIAL HISTORY Smoking: non-smoker Substance Use: none/never Alcohol Use Frequency: never Physical Exam-General - PHYSICAL EXAM-ADULT Initial Vital Signs Reviewed: Yes - CONSTITUTIONAL General Appearance: alert, moderate distress - RESPIRATORY Respiratory: chest non-tender, lungs clear, normal breath sounds - CARDIOVASCULAR Cardiovascular: normal peripheral pulses, regular rate, rhythm, no edema - GASTROINTESTINAL (ABDOMEN) Abdominal Exam: tenderness (generalized but worse in epigastric) - SKIN Integumentary: normal color, normal turgor, warm/dry - PSYCHIATRIC Psych/Mental Status: normal mood/affect, normal thought content, normal thought process, oriented x 3 Progress - PLAN OF CARE/RESULTS Progress/Plan/Lab Results: Vital Signs - 8 hr 11/26/16 17:38 Temperature 98.0 F Pulse Rate 77 Respiratory Rate 18 Blood Pressure 171/85 O2 Sat by Pulse Oximetry 100 Orders Category Date Time Status Saline Loc DIRECTED Care 11/26/16 18:13 Active NPO Diet 11/26/16 18:13 Active AMYLASE [CHEM] Stat Lab 11/26/16 18:13 Uncollected CBC WITH ELECTRONIC DIFF [HEME] Stat Lab 11/26/16 18:13 Uncollected COMPREHENSIVE METABOLIC PANEL [CHEM] Stat Lab 11/26/16 18:13 Uncollected LIPASE [CHEM] Stat Lab 11/26/16 18:13 Uncollected URINALYSIS W/POSS RFLX CULT-1 [URINALYSIS] Stat Lab 11/26/16 18:13 Uncollected Result Diagrams: 11/26/16 19:16 11/26/16 19:16 - CT/MRI 1 CT Study: Abdomen, Pelvis Impression: Abnormal (high grade SBO with the trasition point in the mid abdoment on the left at about the level of the umbilicus: Dr. Romero(radiologist) ) - CONSULTS/PCP/HOSPITALIST Notification #1 *Consult/PCP/Hospitalist*: Dr. Iniguez(surgeon) Time Discussed: 21:50 Consult Disposition: Will see in ED, Admit Departure - Departure Date of Disposition Decision: 11/26/16 Time of Disposition Decision: 22:19 DIAGNOSIS: Small bowel obstruction Disposition: ADMITTED INPATIENT 09 Certified Medical Emergency: Emergent Condition: Stable Referrals and Follow-Ups: Bryanna Reyes MD [Primary Care Provider] - - Critical Care Note This patient required my direct & personal management of CC.: No Attestation - Physician/ CHEYANNE Attestation Patient care was provided by Advanced Practice Provider:: Yes Advanced Practice Provider:: Murphy Kraft Advanced Practice Provider documentation review:: The Mid-level provider documentation, treatment plan and medical decision making was reviewed by the physician who agrees with all treatment and medical decision making by the MLP. This chart was documented by the indicated scribe, (Polly Nash Scribe) and accurately reflects the services I performed and decisions made by me, Murphy Kraft CRNP, as attested by the provider's signature.
[2016-11-26] MEDS ORDERED: DUONEB (A & A) INH PRN (23:47)
[2016-11-26] MEDS ORDERED: VENTOLIN HFA INH PRN (23:47)
[2016-11-26] MEDS ORDERED: NS 1,000 ML IV ONE (23:47)
[2016-11-27] MEDS ORDERED: TYLENOL PO PRN (00:41)
[2016-11-27] MEDS: NS 1,000 ML IV SCH ×4 (00:46→23:09)
[2016-11-27] MEDS: DILAUDID IV PRN ×3 (01:04→20:48)
[2016-11-27] MEDS ORDERED: ALBUTEROL NEB INH SCH (03:00)
[2016-11-27 04:41] LABS: AGAP 19; BUN 7 mg/dL (8-22); CALCIUM 8.8 mg/dL (8.8-10.2); CHLORIDE 99 mmol/L (98-107); COSMO 280; POTASSIUM 4.9 mmol/L (3.5-5.1); SODIUM 138 mmol/L (136-145); TCO2 20 mmol/L (25-35)
--- NOTE | 2016-11-27 06:05 | Diag Imaging Result Doc PS360 ---
EXAM: CHEST/ABD TUBE PLACEMENT HISTORY: tube placement TECHNIQUE: Portable upright AP COMPARISON: 06/05/2016 FINDINGS: There is a nasogastric tube overlying the esophagus and stomach. Lungs are well expanded. The heart is mildly prominent. No free air beneath the diaphragm. IMPRESSION: Nasogastric tube overlies the esophagus and stomach. Electronically signed by Maxwell Gonsalves 11/27/2016 6:02 AM
--- NOTE | 2016-11-27 06:39 | HISTORY AND PHYSICAL ---
CHIEF COMPLAINT: Abdominal pain. HISTORY OF THE PRESENT ILLNESS: This is a 65-year-old female, who presents to the emergency room tonight with acute onset of severe epigastric pain described as stabbing and twisting in nature and constant. It radiates around to her side and back. It is associated with a lot of nausea but no vomiting. She has been unable to vomit since having reflux surgery years ago. No fever, chills, diarrhea or constipation. Her last bowel movement was this morning. The pain is worsened with lying down. There are no relieving factors. PAST MEDICAL HISTORY: 1. Asthma. 2. Peripheral neuropathy. 3. Reflux and chronic back pain. 4. type 2 diabetes, diet controlled. 5. Hypertension. 6. Vitamin D deficiency. 7. Metabolic syndrome. HOME MEDICATIONS: Albuterol nebulizer and inhaler, Prevacid, Neurontin, [place], Ambien. ALLERGIES: No known drug allergies. PAST SURGICAL HISTORY: 1. Laparoscopic cholecystectomy. 2. Laparoscopic hiatal hernia repair and fundoplication. 3. Right knee arthroscopy. 4. Back surgery. 5. C-spine surgery. 6. Left shoulder surgery. 7. Left total knee arthroplasty. 8. She also has had either an umbilical or incisional ventral hernia repair. FAMILY HISTORY: Reviewed and noncontributory. SOCIAL HISTORY: Negative for tobacco, alcohol or illicit drug use. REVIEW OF SYSTEMS: Ten systems reviewed and negative except as noted above. PHYSICAL EXAMINATION: VITAL SIGNS: Temperature 98 degrees, pulse 85, respirations 16, blood pressure 141/75, O2 saturation 100%. GENERAL: A well-developed, elderly female who looks her stated age. She does appear to be uncomfortable. She is nontoxic appearing. HEENT: Normocephalic, atraumatic. Extraocular muscles intact. Pupils equal, round, and reactive to light. Sclerae anicteric. Moist mucous membranes. NECK: Supple. No thyromegaly. CV: Regular rate and rhythm. RESPIRATORY: Bilateral equal breath sounds. No work of breathing. GI: Soft, not particularly distended. May be mildly so. She is tender across her upper abdomen. No rebound, guarding or hernias appreciated. No palpable abdominal mass. She has a healed upper midline incision and laparoscopic incisions. EXTREMITIES: No clubbing, cyanosis, or edema. SKIN: Warm and dry. No rash. MUSCULOSKELETAL: Moves all extremities equally and well. LABORATORY: White blood cell count 9.6, hemoglobin 14, platelet count 224,000. Electrolytes noted for a carbon dioxide of 39, BUN 6, creatinine 0.9, glucose 154. Amylase and lipase normal. IMAGING: CT of the abdomen pelvis was reviewed and it does show dilated proximal small bowel with decompressed distal small bowel. There appears to be a transition point in the mid abdomen. ASSESSMENT/PLAN: A 65-year-old female with signs, symptoms, physical exam and imaging all consistent with small-bowel obstruction. I do not think she needs urgent operation tonight. We will make her nothing by mouth and place an nasogastric tube to low wall suction. We will check her physical exam tomorrow as well as a flat and upright x-ray. If she is not making some progress, then she will need operative exploration for likely adhesion disease causing this obstruction. We will notify Dr. Reyes in the morning. cc: Enrique Iniguez MD
--- NOTE | 2016-11-27 07:29 | Diag Imaging Result Doc PS360 ---
CT ABD/PELVIS W/ IV CONT ONLY - 11/26/2016 INDICATION: abd pain TECHNIQUE: A CT dose reduction protocol was used. COMPARISON: None FINDINGS: There are numerous loops of proximal small bowel that are abnormally dilated. These measure up to 4 cm. There is some swirling of mesenteric loops suggesting an internal hernia as the cause. The transition point is not clear but is felt to be in the right upper quadrant. The solid organs are normal. No free air or free fluid. IMPRESSION: High-grade proximal-mid small bowel obstruction. This may be the result of an internal hernia. Electronically signed by Maximino Mcgrath 11/27/2016 7:27 AM
[2016-11-27] MEDS: PEPCID IV SCH ×2 (10:51→20:48)
--- NOTE | 2016-11-27 11:18 | PROGRESS NOTE ---
DATE: 11/27/2016 SUBJECTIVE: The patient says she feels better. Her pain has improved. Now she feels more sore. She has had no nausea or vomiting. She passed a little flatus this morning. OBJECTIVE: She is afebrile. Vital signs are stable.General: She is alert and oriented x3. No acute distress. CV: Regular rate and rhythm. Respiratory: No work of breathing. GI: Soft, nondistended. Minimally tender. No rebound or guarding. Her NG tube is intact although there is scant bilious drainage in the canister. LABORATORY: Her electrolytes were reviewed and are much improved. Her CO2 is gone from 39-20. Her BUN is 7, creatinine 1.1. IMAGING: She had an abdominal x-ray today which I believe shows decreased small-bowel dilation. I do not see any air-fluid levels. ASSESSMENT/PLAN: 65-year-old female with small-bowel obstruction. The etiology is unclear but she has multiple prior surgeries and certainly could have adhesions. In any case, symptomatically she is improving. We will continue observation at this point, I will allow her to have some ice chips. If her exam and bowel function improves overnight then she could be advanced to a clear liquid diet tomorrow. Dr. Perez will make rounds in my absence over the weekend. In regards to the CT scan report suggesting an internal hernia I reviewed this again myself and I do not see any significant mesenteric swirling which is convincing for hernia and in her symptoms are improving. cc: Enrique Iniguez MD
[2016-11-27 11:51] LABS: URINE MICRO REVIEW NEEDED? NO; URINE SOURCE CLEAN CATCH
--- NOTE | 2016-11-27 11:59 | Diag Imaging Result Doc PS360 ---
EXAM: ABDOMEN FLAT/UPRIGHT HISTORY: sbo TECHNIQUE: Two views COMPARISON: 11/26/2016 FINDINGS: There is a nasogastric tube over the stomach. Surgical clips are found in the right upper quadrant consistent with cholecystectomy. Small amount of stool is found throughout the colon. The bowel loops are not dilated. The urinary bladder is distended with contrast. No abnormal abdominal calcifications. IMPRESSION: Mild constipation. Electronically signed by Maxwell Gonsalves 11/27/2016 11:57 AM
[2016-11-27 12:11] LABS: BILIRUBIN URINE NEGATIVE (NEGATIVE); BLOOD URINE NEGATIVE (NEGATIVE); COLOR YELLOW; GLUCOSE URINE >1000 mg/dL (NEGATIVE); LEUKOCYTES URINE NEGATIVE (NEGATIVE); NITRITE URINE NEGATIVE (NEGATIVE); PH URINE 7.5; PROTEIN URINE 30 mg/dL (NEGATIVE); TURBIDITY URINE CLEAR (CLEAR); UROBILINOGEN URINE NORMAL (NORMAL)
[2016-11-27 12:13] LABS: UR EPITHELIAL CELLS >10 /HPF (<10); URINE BACTERIA 2+ /HPF; URINE CULTURE NEEDED? YES; URINE RBC <10 /HPF (<10); URINE WBC <10 /HPF (<10)
[2016-11-27 13:47] LABS: SP GRAVITY URINE > 1.050
[2016-11-27] MEDS: ZOFRAN IV PRN (16:18)
--- NOTE | 2016-11-27 18:04 | CONSULTATION ---
DATE OF CONSULTATION: 11/27/2016 REQUESTING PHYSICIAN: Dr. Enrique Iniguez. REASON FOR CONSULTATION: I was asked to see Nikki Romero, who was admitted last night for small- bowel obstruction and NG tube. History and physical was done by Dr. Iniguez. She is a patient of mine who was seen in my office on 11/19/2016. She complained at that time of chest pain and shortness of breath. I set up an outpatient cardiac workup. In the meantime, she got admitted with a small-bowel obstruction. Denies any complaints at this time. No passing gas. She just came back from X-Ray. PAST MEDICAL HISTORY: Allergic rhinitis, metabolic syndrome, hypertension, GERD, chronic back pain, vitamin D deficiency. PAST SURGICAL HISTORY: Umbilical hernia repair, orthopedic right knee arthroscopy, neck surgery, back surgery, left shoulder surgery, left total knee arthroplasty. MEDICATIONS: Ambien 5 at bedtime, Flexeril 10 daily, Flonase as needed, Losartan 50 daily, [place] as needed, Protonix 40 daily, Proventil as needed. ALLERGIES: Not known. SOCIAL HISTORY: Single with 3 kids, living in [place]. No smoking. No alcohol. No drug abuse. FAMILY HISTORY: Father of old age at 83. Mom of asthma attack. REVIEW OF SYSTEMS: HEENT: No headache. No vision problem. No earache. No sore throat. Neck: No goiter. No lymphadenopathy. No bruit. Cardiopulmonary: No chest pain, shortness of breath, PND, or orthopnea. Gastrointestinal: Nausea and vomiting. No passing gas. Obstipation. Genitourinary: No history of hesitancy or frequency. Musculoskeletal: No swelling of legs. No joint pain. Neurologic: No focal symptoms or weakness. PHYSICAL EXAMINATION: Vital Signs: Afebrile. Pulse is 70. Blood pressure is 138/73. HEENT: Atraumatic, normocephalic. Pupils equal, react to light. TMs are normal. Nose and throat are normal. Neck: Supple. No lymphadenopathy. No goiter. Chest: Bilateral air entry. No rales, no wheezing. Heart: Sounds are regular. Abdomen: Belly is soft, nontender. Good bowel sounds. No masses palpable. A midline abdominal scar present. Neurologic: No obvious neurological deficits. INVESTIGATIONS: CBC is normal. SMA 7: Creatinine 1.1. Urinalysis is clear. Abdominal x-ray: Mild constipation, nasogastric tube present. Bowel loops are not dilated. ASSESSMENT AND PLAN: A 65-year-old female, admitted to the hospital with small- bowel obstruction with previous abdominal surgeries. Continue on conservative management, IV fluids, IV Zofran, and IV H2 blockers, incentive spirometry, follow up her labs and x-rays in the morning. For history of asthma, Proventil as needed. We will discuss with Dr. Iniguez if it does not open up and needs exploratory laparotomy. Continue current present medical therapy. Once again, thanks for the kind referral. cc: MD Enrique Okeefe MD
[2016-11-27] MEDS: SODIUM CHLORIDE 0.9% INJ SCH (20:48)
[2016-11-28] MEDS: DILAUDID IV PRN ×2 (03:09→06:43)
[2016-11-28] MEDS: NS 1,000 ML IV SCH ×4 (03:34→20:35)
[2016-11-28 06:13] LABS: MANUAL DIFF NEEDED? NO
[2016-11-28 06:27] LABS: BASO% 0.3 % (0.0-0.8); EOS# 0.52 X1000 (0.0-0.7); EOS% 7.7 % (0.0-10.0); HEMATOCRIT 39.3 % (37.0-47.0); IMM GRAN# 0.04 X1000 (0.0-0.04); IMM GRAN% 0.6 % (0.0-0.5); LYMPH% 42.8 % (20.5-51.1); MCH 29.3 PG (27-31); MCHC 33.1 g/dL (33-37); MCV 88.7 FL (81-99); MONO# 0.67 X1000 (0.11-0.59); MONO% 9.9 % (1.7-9.3); MPV 13.4 FL (7.4-10.4); NEUT% 38.7 % (42.2-75.2); PLT 90 X1000 (130-400); RBC 4.43 XMIL (4.2-5.4)
[2016-11-28] MEDS: ZOFRAN IV PRN ×2 (06:42→10:51)
[2016-11-28 06:44] LABS: AGAP 16; BUN 7 mg/dL (8-22); CALCIUM 8.2 mg/dL (8.8-10.2); CHLORIDE 104 mmol/L (98-107); COSMO 279; POTASSIUM 4.4 mmol/L (3.5-5.1); SODIUM 140 mmol/L (136-145); TCO2 20 mmol/L (25-35)
[2016-11-28] MEDS ORDERED: LOVENOX SUBQ SCH (08:00)
--- NOTE | 2016-11-28 08:14 | PROGRESS NOTE ---
DATE: 11/28/2016 SUBJECTIVE: She feels well. Started passing gas last night, with a bowel movement. No nausea. OBJECTIVE: Vital Signs: No fevers. No tachycardia. Blood pressure has been 140 systolic. Abdomen: Soft, nondistended, nontender. LABS: Reviewed. White count 6, hematocrit 39, creatinine 0.9. ASSESSMENT AND PLAN: A 65-year-old female with small-bowel obstruction with multiple previous abdominal operations. She has appears to be resolved this. NG tube output has been minimal. We will discontinue this and start her on clear liquids and advance her diet as she tolerates. cc: MD Enrique Hong MD
--- NOTE | 2016-11-28 09:03 | Diag Imaging Result Doc PS360 ---
ABDOMEN FLAT/UPRIGHT - 11/28/2016 INDICATION: pain TECHNIQUE: Two views COMPARISON: 11/27/2016 FINDINGS: Stable nasogastric tube in the stomach. Stable cholecystectomy clips. There is decrease in the minimally prominent small bowel loops. No obstruction or free air. There is a normal quantity of stool throughout the colon. IMPRESSION: No acute disease. Electronically signed by Maximino Mcgrath 11/28/2016 9:00 AM
[2016-11-28] MEDS ORDERED: DULCOLAX PR ONE (09:05)
[2016-11-28] MEDS: PEPCID IV SCH ×2 (09:27→20:36)
--- NOTE | 2016-11-28 10:59 | PROGRESS NOTE ---
DATE: 11/28/2016 SUBJECTIVE: Ms. Romero is a 65-year-old, -Cypriot patient, admitted with significant upper abdominal pain and nausea. No vomiting. CT scan of the abdomen did reveal small bowel obstruction. The patient was admitted and had NG tube placed which was placed to low [place] suction. The patient was admitted to the surgical service. We are on the consult. The patient is doing better. She passed some flatus. She did not have bowel movement yet. Her pain is improving. She denied any fever or chills. The patient was complaining of some sinus congestion. No unusual cough or expectoration. No typical chest pain or palpitation. No dysuria or hematuria. ADMISSION HISTORY PHYSICAL AND CONSULTATION: Noted. PAST MEDICAL HISTORY: Significant for allergic rhinitis, hypertension, gastritis, and reflux disease, chronic low back pain, metabolic syndrome, vitamin D deficiency. PAST SURGICAL HISTORY: The patient did have umbilical hernia repair, right knee arthroscopy, neck surgery, back surgery, left shoulder surgery, and left total knee arthroplasty. OBJECTIVE: Vital Signs noted. Neck supple. No JVD. Lungs: Bilateral good air entry present. Cardiovascular: S1 and S2 heard. Abdomen: Soft. No distention. Bowel sounds hypoactive. Extremities: No cyanosis, clubbing. No acute DVT. 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 CONSIDERATION: Small bowel obstruction, clinically improving. Surgeon is going to take the NG tube out and going to start her on clear liquid. Her other problem includes hypertension and low back pain. LABORATORY DATA: Labs done today. Her platelet count went down to 90. WBC count 6.77, hemoglobin 13, hematocrit 39.3. Electrolytes were fairly benign. PLAN: Overall, the patient is doing better. We will continue current treatment. I am going to resume her home medicine. cc: MD Enrique Mcnally MD
[2016-11-28] MEDS: CLARITIN-D 12 HR PO SCH ×4 (12:59→23:43)
[2016-11-28] MEDS: AMBIEN PO PRN (20:36)
[2016-11-28] MEDS: NEURONTIN PO SCH (20:36)
[2016-11-29 06:51] LABS: AGAP 13; ALBUMIN 3.8 g/dL (3.5-5.0); ALKALINE PHOSPHATASE 67 U/L (32-104); BUN 6 mg/dL (8-22); CALCIUM 9.4 mg/dL (8.8-10.2); CHLORIDE 100 mmol/L (98-107); COSMO 277; GOT 26 U/L (10-30); GPT 14 U/L (10-36); MAGNESIUM 1.9 mg/dL (1.5-2.7); POTASSIUM 4.6 mmol/L (3.5-5.1); SODIUM 138 mmol/L (136-145); TCO2 25 mmol/L (25-35); TOTAL BILIRUBIN 0.46 mg/dL (0.20-1.00); TOTAL PROTEIN 6.6 g/dL (6.3-8.3)
[2016-11-29] MEDS: DILAUDID IV PRN ×2 (07:24→15:27)
[2016-11-29 07:50] LABS: MANUAL DIFF NEEDED? NO
[2016-11-29 08:02] LABS: BASO% 0.2 % (0.0-0.8); EOS# 0.35 X1000 (0.0-0.7); EOS% 5.9 % (0.0-10.0); HEMATOCRIT 38.9 % (37.0-47.0); HEMOGLOBIN 13.3 g/dL (12.0-16.0); LYMPH# 2.09 X1000 (1.2-3.4); LYMPH% 35.5 % (20.5-51.1); MCH 29.8 PG (27-31); MCHC 34.2 g/dL (33-37); MCV 87.2 FL (81-99); MONO% 11.9 % (1.7-9.3); MPV 12.2 FL (7.4-10.4); NEUT% 46.5 % (42.2-75.2); PLT 174 X1000 (130-400); RBC 4.46 XMIL (4.2-5.4)
[2016-11-29] MEDS ORDERED: DULCOLAX PR ONE (08:39)
--- NOTE | 2016-11-29 09:27 | PROGRESS NOTE ---
DATE: 11/29/2016 SUBJECTIVE: She feels okay. She is still a little bloated but she is passing gas. No nausea. No vomiting. OBJECTIVE: Vital Signs: No fevers. Heart rate has been in the 80s to 90s. Blood pressure 136/82, oxygen saturation 96% on room air. General: She is alert. Cardiovascular: Normal rate, regular rhythm. Abdomen: Soft, nontender. Mildly distended but no tympany. Integument: Otherwise warm and dry. I do not see any jaundice. Extremities: No lower extremity edema. Labs: White count is 5, hematocrit is 38. Creatinine is 1, potassium is 4.6. ASSESSMENT/PLAN: A 65-year-old female with a bowel obstruction. She is gradually resolving this. We will go slow with her diet. If she is feeling a little more bloated today, we will keep her on full liquids for today. I have encouraged her to go slow and if she feels full, back this off as well. I will order her another Dulcolax suppository today. cc: MD Enrique Hong MD
--- NOTE | 2016-11-29 09:34 | PROGRESS NOTE ---
DATE: 11/29/2016 SUBJECTIVE: Ms. Romero is feeling better. The patient did have a small bowel movement with her suppository. She was tolerating liquid well. She does feel some bloated feeling in the abdomen. No nausea or vomiting. No typical chest pain. Her NG tube was discontinued yesterday. Abdominal x-ray showed improvement. The patient is on a clear liquid diet. PHYSICAL EXAMINATION: Vital Signs: Her vital signs noted. Neck: Supple. No JVD. Lungs: Bilateral good air entry present. CVS: S1 and S2 heard. Abdomen: Soft. No distention. Mild upper abdominal tenderness. No guarding or rigidity. Extremities: No cyanosis, clubbing. No acute DVT. 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 Able to move all 4 limbs. CONSIDERATION: 1. Small bowel obstruction. Clinically, patient is doing better. She still has some abdominal pain and bloating. Patient is on clear liquid diet. Plan to gradually advance diet as per surgeon. Once she tolerates diet, she may be able to go home soon. 2. Upper respiratory tract infection and sinus congestion, doing better with Claritin. 3. Hypertension. 4. Gastritis. 5. Her lab done today, reviewed yesterday, her platelet count was 90,000. I discontinued Lovenox. Today, it is 174. Patient is already on deep venous thrombosis prophylaxis with sequential compression devices which we will continue. Electrolytes were benign. We will continue current treatment and close observation. Her urine had 2+ bacteria. Culture is negative. cc: MD Enrique Mcnally MD
[2016-11-29] MEDS: NEURONTIN PO SCH ×2 (09:35→21:50)
[2016-11-29] MEDS: CLARITIN-D 12 HR PO SCH ×3 (09:35→21:51)
[2016-11-29] MEDS: PEPCID IV SCH ×2 (09:36→21:50)
[2016-11-29] MEDS: ZOFRAN IV PRN (15:27)
[2016-11-29] MEDS: NS 1,000 ML IV SCH (15:30)
[2016-11-29] MEDS: AMBIEN PO PRN (21:50)
[2016-11-30] MEDS: DILAUDID IV PRN (06:36)
[2016-11-30] MEDS: NS 1,000 ML IV SCH ×3 (06:49→23:54)
[2016-11-30] MEDS: ZOFRAN IV PRN (07:47)
--- NOTE | 2016-11-30 09:01 | Diag Imaging Result Doc PS360 ---
EXAM: ABDOMEN FLAT/UPRIGHT HISTORY: pain TECHNIQUE: Flat and upright two views COMMENT: There is stool throughout the colon. There is no evidence of small bowel or gastric distention. There are phleboliths in the pelvis. There is been cholecystectomy. IMPRESSION: Constipation. Electronically signed by Kan Blackman 11/30/2016 8:59 AM
[2016-11-30] MEDS: PEPCID IV SCH ×2 (10:08→21:59)
--- NOTE | 2016-11-30 13:21 | PROGRESS NOTE ---
DATE: 11/30/2016 SUBJECTIVE: She complains of nausea but her pain is significantly improved from admission. She did have 2 bowel movements yesterday. OBJECTIVE: Vital signs: She is afebrile. Vital signs are stable. General: She is alert and oriented x3 in no acute distress but does appear ill. She is nontoxic appearing. CV: Regular rate and rhythm. Respiratory: No work of breathing. GI: Soft, not particularly distended or tympanic. She has a few bowel sounds. There is a minimal tenderness. LABORATORY: None today. IMAGING: A flat and upright of the abdomen shows stool throughout the colon and phleboliths in the pelvis but no evidence of small bowel or gastric distention with impression of constipation. ASSESSMENT/PLAN: 66-year-old female with abdominal pain and nausea. The pain is improved. The nausea has not. Her imaging shows more constipation now than small bowel obstruction. We will give her a bowel stim and keep her on a liquid diet for now. cc: Enrique Iniguez MD
[2016-11-30] MEDS: NEURONTIN PO SCH ×2 (15:46→22:00)
[2016-11-30] MEDS: CLARITIN-D 12 HR PO SCH ×2 (15:47→22:00)
[2016-11-30] MEDS: MIRALAX PO SCH ×2 (15:47→23:55)
[2016-11-30] MEDS ORDERED: SODIUM CHLORIDE 0.9% INJ PRN (16:53)
[2016-11-30] MEDS: PHENERGAN IV PRN ×2 (17:24→22:10)
--- NOTE | 2016-11-30 19:33 | PROGRESS NOTE ---
DATE: 11/30/2016 SUBJECTIVE: Events were noted over the weekend. Small-bowel obstruction is improving. Discontinue the NG tube. Tolerating the liquids. Apparently this morning she is having nausea, upper abdominal discomfort. PRIOR HISTORY: The patient had a gallbladder surgery and Birgit fundoplication, REVIEW OF SYSTEMS: HEENT: No headache. No vision problems. Cardiopulmonary: No chest pain, shortness of breath, PND, orthopnea. GI: Nausea and passing some gas and upper abdominal discomfort. : No history of hesitancy, frequency. Extremities: No swelling of feet. No joint pain. Neuro: No focal symptoms or weakness. PHYSICAL EXAMINATION: Vital signs: Afebrile, vitals are stable. HEENT: Within normal limits. Neck: Supple. No lymphadenopathy. Chest: Clear. Heart: Sounds are regular. Belly: Is soft. Midline abdominal scar present. No signs of peritonitis. INVESTIGATIONS: Flat and upright abdomen with chest showed constipation. Labs, none reported. Yesterday CBC, SMA 7, LFTs were normal. ASSESSMENT AND PLAN: 1. Upper abdominal pain initially small-bowel obstruction, resolving. 2. Constipation. Will give some Dulcolax and MiraLAX. 3. Upper abdominal discomfort. Possible consults with GI building economist. 4. To continue on intravenous Pepcid and symptomatic treatment for nausea and discussed with the patient. Will follow up. cc: MD Enrique Okeefe MD
[2016-11-30] MEDS: DULCOLAX PR SCH (22:03)
[2016-12-01] MEDS: NS 1,000 ML IV SCH (05:47)
[2016-12-01] MEDS: MIRALAX PO SCH ×2 (09:11→21:23)
[2016-12-01] MEDS: NEURONTIN PO SCH ×2 (09:12→21:25)
[2016-12-01] MEDS: PEPCID IV SCH ×2 (09:12→21:26)
[2016-12-01] MEDS: SODIUM CHLORIDE 0.9% INJ SCH ×2 (09:12→21:23)
[2016-12-01] MEDS: CLARITIN-D 12 HR PO SCH ×2 (09:16→21:25)
[2016-12-01] MEDS ORDERED: FLEET ENEMA PR ONE (14:50)
[2016-12-01] MEDS ORDERED: CITRATE OF MAGNESIA PO ONE (14:50)
--- NOTE | 2016-12-01 15:05 | PROGRESS NOTE ---
DATE: 12/01/2016 SUBJECTIVE: The patient says her nausea has improved. She does not have severe abdominal pain. It is just sore. She does complain of some discomfort or dysphagia with swallowing. This is a longstanding problem for her. She has a history of a Birgit fundoplication. She has also been evaluated by Dr. Rodrigues earlier this year with EGD and barium swallow the findings of which indicated erosive gastritis, some esophageal narrowing at the upper sphincter, a small hiatal hernia, multiple gastric ulcers. Her upper GI series showed a small distal esophageal diverticulum just over a centimeter and otherwise no abnormality. OBJECTIVE: Vital signs: She is afebrile. Vital signs are stable. General: She is awake and alert. No acute distress. She denies any bowel movements but a small 1 was recorded yesterday evening. CV: Regular rate and rhythm. Respiratory: No work of breathing. Gastrointestinal: Soft, nontender, nondistended. She does have hypoactive bowel sounds. ASSESSMENT/PLAN: A 66-year-old female admitted with small bowel obstruction. This appears to be resolved. She is having some dysphagia as well as constipation. I will talk to Dr. Rodrigues about any further intervention for her dysphagia and will give her magnesium citrate and enema for her constipation. cc: Enrique Iniguez MD
[2016-12-01] MEDS: PREVACID SOLUTAB PO SCH (16:56)
[2016-12-01] MEDS: ZOFRAN IV PRN (16:56)
--- NOTE | 2016-12-01 18:54 | PROGRESS NOTE ---
DATE: 12/01/2016 SUBJECTIVE: Patient is doing very well. Discussed with Dr. Iniguez. Patient wants to get EGD and colonoscopy. She was seen before by Dr. Rodrigues. REVIEW OF SYSTEMS: Decreased nausea. Decreased abdominal pain. PHYSICAL EXAMINATION: Vital Signs: Afebrile, stable. HEENT: Within normal limits. Neck: Supple. No lymphadenopathy. No goiter. Chest: Clear to auscultation. Heart: Sounds are regular. Abdomen: Belly is soft, nontender. Good bowel sounds. No masses palpable. Extremities: No peripheral edema, cyanosis. Neurologic: No obvious neurological deficits. : Urine cultures were negative. ASSESSMENT AND PLAN: 1. Small-bowel obstruction. Improving. 2. Intermittent dysphagia, acid reflux disease. Constipation. Continue on enemas and magnesium citrate. She needs EGD and colonoscopy. That will be done at the discretion of the patient and Dr. Iniguez. Continue present medical therapy. LEVEL OF DOCUMENTATION: 15 minutes. cc: MD Enrique Okeefe MD
[2016-12-01] MEDS: PHENERGAN IV PRN (21:24)
[2016-12-01] MEDS: DILAUDID IV PRN (21:24)
[2016-12-01] MEDS: DULCOLAX PR SCH (21:25)
--- NOTE | 2016-12-02 01:45 | CONSULTATION ---
DATE OF CONSULTATION: 11/30/2016 REFERRING PHYSICIAN: Emilie Reyes M.D. INDICATION FOR CONSULTATION: 1. Abdominal pain. 2. Nausea with vomiting. HISTORY OF PRESENT ILLNESS: The patient is a very pleasant 66-year-old female who is followed in our clinic. She presented to the emergency room on 2016 with nausea with dry heaves, abdominal pain, and severe constipation. In the emergency room, a CT scan was obtained and found to be remarkable for a high-grade proximal mid small bowel obstruction. There was a questionable visualization of an internal hernia. She has been treated supportively with bowel rest and nasogastric tube placement. Over the last 24-48 hours, she has had slight improvement. Her NG tube is out today. She states, however, she remains nauseated, although she has begun to have spontaneous flatus. She has been followed by Dr. Enrique Iniguez , who reports that her abdominal pain is significantly improved from admission, although her nausea persists. He recommends continued medical management. She was placed on a clear liquid diet , and we are asked to participate in her care due to the persistent nausea with dry heaves. PAST MEDICAL HISTORY: Remarkable for: 1. Asthma. 2. Diabetes. 3. Hypertension. 4. Surgical changes consistent with a Birgit fundoplication. 5. Schatzki's ring. 6. Erosive gastritis. 7. Mid gastric body ulcer in 06/2016. 8. Duodenitis. 9. Colonic AVMs. 10. Diverticulosis. 11. Internal and external hemorrhoids. 12. Patient has gastroparesis based on gastric emptying study performed on 07/06. PAST SURGICAL HISTORY: 1. Back surgery. 2. Cholecystectomy. 3. Hernia repair. 4. Knee surgery. 5. Neck surgery. 6. Birgit fundoplication. 7. Shoulder surgery. 8. Tubal ligation. MEDICATION ALLERGIES: None. HOME MEDICATIONS: 1. Ambien. 2. Prevacid. 3. [place] 7.5. 4. Neurontin. 5. Albuterol nebulizer. 6. Ventolin inhaler. 7. DuoNeb as needed. PHYSICAL EXAMINATION: General: She is uncomfortable, but in no acute distress. Vital Signs: Her blood pressure is 128/69, pulse of 77, respirations 16, temperature of 98.3 degrees. HEENT: Negative for jaundice. Her oropharyngeal mucosal membranes are dry. She has occasional dry heaves during the history, as well as during the physical exam. Pulmonary: Lungs are clear to auscultation with normal expiratory effort. Cardiovascular: Reveals regular rate and rhythm, with no murmurs, gallops, or rubs. Abdominal: Reveals moderate diffuse tenderness. There is no rebound or guarding. She is distended compared to her baseline exam. The abdominal tenderness is greatest in the epigastrium, but there is no rebound or guarding. Extremities: Bilaterally are negative for cyanosis, clubbing, or edema. OBJECTIVE DATA: Reveals a hemoglobin of 13.3, with a hematocrit of 38.9, and a white count of 5.89, with 174,000 platelets. Sodium is 138, potassium 4.6, chloride 100, CO2 of 25, BUN 6, creatinine 1.0, with a glucose 171. Calcium is 9.4, magnesium 1.9, total bilirubin 0.46, AST 26, ALT 14, alkaline phosphatase 67, total protein 6.6, and albumin 3.8. IMPRESSION: 1. Nausea, with dry heaves. 2. Epigastric pain. 3. Worsening constipation. 4. Gastroparesis. 5. Gastrointestinal history as noted above. RECOMMENDATION: 1. The patient has having significant dry heaves and nausea, which is an interval change from her baseline. I recommend continued medical management, in light of her recent small bowel obstruction. 2. Should the dry heaves fail to resolve, I will place the patient on the schedule for an endoscopy on Wednesday12/02/2016. 3. I recommend that the patient receive MiraLAX for treatment of the constipation. If she fails to respond to the MiraLAX, I would consider a course of Movantik. 4. Continue Prevacid 30 mg during the day. She may also benefit from Pepcid Complete at bedtime. Please avoid co-administration of Pepcid and Prevacid, as they will inactivate each other. 5. Continue Zofran and Phenergan on an as needed basis. 6. She will need a gastroparesis diet when she resumes her diet. 7. If her symptoms persist, I will consider endoscopy. 8. Additional recommendations to follow based on her clinical course. cc: MD Enrique Venegas MD P. J. Reddy, MD MTDD
[2016-12-02] MEDS: NS 1,000 ML IV SCH (02:12)
[2016-12-02] MEDS ORDERED: DIPRIVAN 1% ONE (08:05)
[2016-12-02] MEDS ORDERED: XYLOCAINE-MPF 2% ONE (08:06)
--- NOTE | 2016-12-02 09:34 | OPERATIVE NOTE ---
PROCEDURE DATE: 12/02/2016 REFERRING PHYSICIAN: Emilie Reyes M.D. INDICATION FOR PROCEDURE: 1. Dysphagia. 2. Nausea. 3. Epigastric pain. 4. Known gastroparesis. 5. Heartburn. 6. History of a Birgit fundoplication. PROCEDURE PERFORMED: Esophagogastroduodenoscopy with biopsy. CONSENT: Informed consent was obtained from the patient prior to the procedure. The risks, benefits, and alternatives were discussed. MEDICATION: The patient received monitored anesthesia care. PERFORMING PHYSICIAN: Maria Luisa Rodrigues M.D. ASSISTANTS: 1. ST. Yolanda 2. Senait Marvin RN. 3. Radha Lane CRNA. 4. Linus Cerda M.D. (anesthesia). COMPLICATIONS: There were no complications. ESTIMATED BLOOD LOSS: 1 to 2 mL. SPECIMEN REMOVED: Gastric biopsy. FINDINGS: After sedation was achieved, the upper endoscope was inserted to the 2nd portion of the duodenum. The hypopharynx appeared endoscopically normal. The tubular esophagus was normal with no evidence of varices or Vernon's esophagus. The GE junction was measured at 40 cm. There was no evidence of obstruction, although there was a mild increase in resistance. There was a hiatal hernia from 40-44 cm. It was not visualized on previous endoscopy. In the gastric lumen, there were multiple superficial erosions. They were present in the antrum, fundus, and body. There was 1 serpiginous ulcer in the mid gastric body. It was approximately 7-8 mm in size. There were 2 stellate ulcers in the antrum with edematous folds. Biopsies were taken for pathology. In the fundus, there was mild gastric stasis consistent with a history of known gastroparesis. After evacuation, there were no other findings. The pylorus appeared endoscopically normal. In the duodenum, the mucosa was normal in the 1st and 2nd portions of the duodenum. The major papilla appeared normal. The scope was then retracted into the gastric lumen and retroflexion was again performed. The Birgit fundoplication appears to have partial dehiscence as we were able to see the hiatal hernia and see the GE junction. On forward view, it should be noted that the patient had active reflux throughout the procedure noted on withdrawal of the scope. After the exam was complete, the lumen was decompressed and the scope was removed without incident. IMPRESSION: 1. Hiatal hernia. 2. Erosive gastritis. 3. Three gastric ulcers. 4. Mild gastric stasis. 5. Active gastric reflux. 6. Partial dehiscence of the Birgit fundoplication. RECOMMENDATION: 1. Await biopsy results. 2. Continue Prevacid SoluTab in the morning. 3. I will add Pepcid Complete at bedtime. While in the hospital, she may receive Pepcid 40 mg at bedtime to help reduce the nighttime acid reflex. 4. I will also add Carafate 1 g p.o. 4 times a day for 12 weeks to promote healing of the multiple gastric ulcers. 5. We will have the patient evaluated for an outpatient Birgit fundoplication redo by Dr. Garber [facility] in [place]. I will make arrangements for outpatient followup and for esophageal manometry which would be required prior to any potential surgical intervention. 6. We will have the patient return to clinic in 2-3 weeks to assess interval progress. 7. I will advance her diet to a GI soft diet. 8. When she is tolerating her diet, it is reasonable to consider outpatient management. cc: MD Enrique Venegas MD P. J. Reddy, MD MTDD
[2016-12-02] MEDS: NEURONTIN PO SCH ×2 (09:48→21:37)
[2016-12-02] MEDS: MIRALAX PO SCH ×2 (09:48→21:38)
[2016-12-02] MEDS: CARAFATE LIQUID PO SCH ×3 (09:54→21:37)
[2016-12-02] MEDS: PREVACID SOLUTAB PO SCH (09:56)
[2016-12-02] MEDS: CLARITIN-D 12 HR PO SCH ×2 (09:56→21:38)
[2016-12-02] MEDS ORDERED: CHLORASEPTIC SORE THROAT LOZENGE MT ONE (13:45)
[2016-12-02] MEDS: DILAUDID IV PRN (14:10)
--- NOTE | 2016-12-02 14:56 | PROGRESS NOTE ---
DATE: 12/02/2016 SUBJECTIVE: The patient says she feels sore. She has had multiple bowel movements last night and this morning. She says that has helped some with her bloating. She is tolerating sips of clears status post the EGD this morning. The EGD results were reviewed. OBJECTIVE: She is afebrile. Vital signs are stable.General: Alert and orient x4. No acute distress. Gastrointestinal: Soft, nondistended. Minimally tender. No rebound or guarding. ASSESSMENT AND PLAN: This is a 66-year-old female, who was admitted with small bowel obstruction. This appears to have resolved. She also has had constipation which is improving on her bowel regimen. She has a history of reflux disease and recent worsening dysphagia. EGD findings reveal a few gastric ulcers as well as reflux and hiatal hernia and possibly a partial Birgit dehiscence. I agree with advancing her diet as tolerated and if she is stable overnight with her diet then discharge tomorrow to follow up with Dr. Rodrigues and future referral for manometry in [place] and potential surgical revision by the thoracic surgeon Dr. Garber. cc: Enrique Iniguez MD
--- NOTE | 2016-12-02 19:16 | PROGRESS NOTE ---
DATE: 12/02/2016 SUBJECTIVE: Patient is doing very well with no nausea. Constipation is improving. Patient was seen by GI by Dr. Rodrigues and has been scheduled for EGD and colonoscopy. REVIEW OF SYSTEMS: None reported. OBJECTIVE: Vitals: Are stable. HEENT: Within normal limits. Neck: Supple. Chest: Clear. Heart: Sounds are regular. Abdomen: Belly is soft, nontender. Good bowel sounds. ASSESSMENT AND PLAN: 1. History of acid reflux disease. Status post Birgit fundoplication and cholecystectomy. Continue on PPI. Waiting for EGD by Maria Luisa Rodrigues MD. 2. Constipation is improving and will follow up on the findings. LEVEL OF DOCUMENTATION: 15 minutes. cc: MD Enrique Okeefe MD
[2016-12-02] MEDS ORDERED: PEPCID PO SCH (21:00)
--- NOTE | 2016-12-02 21:17 | PROGRESS NOTE ---
DATE: 12/01/2016 SUBJECTIVE: The patient states that she is feeling worse. She reports a marked increase in epigastric pain, loose stools, and dry heaving. She states that she would like to have evaluation performed endoscopically as soon as possible. OBJECTIVE DATA: Reveals a blood pressure 159/80, respirations 20, pulse of 73, with a temperature of 98.6 degrees. No exam was done because the patient was actively regurgitating bilious secretions. There are no labs today. RECOMMENDATIONS: 1. We will plan to perform an EGD in the morning to further evaluate her upper GI tract. 2. The patient had a colonoscopy in June that was essentially unremarkable. I will consider repeat evaluation based on her endoscopic findings. If we are unable to find the cause of her symptoms, she may need further evaluation of her small bowel. cc: MD Enrique Venegas MD P. J. Reddy, MD
[2016-12-02] MEDS: DULCOLAX PR SCH (21:38)
[2016-12-03] MEDS: CARAFATE LIQUID PO SCH ×3 (02:05→14:18)
[2016-12-03] MEDS: NS 1,000 ML IV SCH (02:20)
[2016-12-03 08:05] VITALS: BP 134/91
[2016-12-03] MEDS: PREVACID SOLUTAB PO SCH (08:14)
[2016-12-03] MEDS: NEURONTIN PO SCH (08:14)
[2016-12-03] MEDS: CLARITIN-D 12 HR PO SCH ×2 (08:18→12:28)
[2016-12-03] MEDS: MIRALAX PO SCH (08:19)
--- NOTE | 2016-12-03 12:54 | PROGRESS NOTE ---
DATE: 12/03/2016 SUBJECTIVE: The patient denies significant abdominal pain, nausea or vomiting. She is tolerating a soft diet and is passing gas. OBJECTIVE: Vital Signs: She is afebrile. Vital signs are stable. General: She is alert and oriented x4. No acute distress. GI: Soft, nontender, nondistended. She has good bowel sounds. LABS/IMAGING: There are no labs or imaging today. ASSESSMENT/PLAN: A 66-year-old female with abdominal pain, nausea and vomiting, and partial small bowel obstruction which have resolved. She also has some gastric ulcers and some abnormality with her Birgit fundoplication with hiatal hernia and reflux noted on EGD. The plan is to discharge her today with follow up with Dr. Rodrigues and future workup, including manometry, at Dr. Rodrigues's discretion. She may ultimately need surgical revision. cc: Enrique Iniguez MD
--- NOTE | 2016-12-03 18:04 | DISCHARGE SUMMARY ---
ADMISSION DATE: 11/26/2016 DISCHARGE DATE: 12/03/2016 ADMITTING DIAGNOSES: 1. Small-bowel obstruction. 2. History of gastroesophageal reflux disease. 3. History of type 2 diabetes. 4. History of chronic back pain. 5. History of hypertension. 6. History of asthma. 7. History of metabolic syndrome. DISCHARGE DIAGNOSES: 1. Small-bowel obstruction. 2. History of gastroesophageal reflux disease. 3. History of type 2 diabetes. 4. History of chronic back pain. 5. History of hypertension. 6. History of asthma. 7. History of metabolic syndrome. 8. Gastric ulcer. 9. Hiatal hernia. BRIEF HISTORY AND HOSPITAL COURSE: This is a 66-year-old female, who presented to the hospital with acute onset of epigastric pain with nausea and her physical exam and imaging were consistent with small-bowel obstruction. She was admitted for further treatment and evaluation. Her obstructive symptoms did gradually resolve without surgical intervention. However, she continued to have some dysphagia and nausea and she underwent consultation with Dr. Rodrigues and ultimately an EGD showing some gastric ulcers, reflux into the esophagus as well as possible dehiscence of the Birgit fundoplication and a hiatal hernia. After the EGD, she was doing better overall with decreased nausea and abdominal pain and she was able to tolerate a soft diet and pass gas and she has had a bowel movement and she was ultimately discharged home. DISCHARGE INSTRUCTIONS: She is to follow up with Dr. Rodrigues within 2 weeks to monitor her progress. She will eventually likely be referred for esophageal manometry and potentially surgical revision of her fundoplication. DISCHARGE MEDICATIONS: She will resume her home albuterol, Ventolin, Prevacid, Neurontin, [place], Ambien and AA nebs. She has a new prescription for Pepcid Complete 1 p.o. at bedtime, Prevacid SoluTab 50 mg p.o. q.a.m. and Carafate 1 g p.o. q.6 hours. cc: MD Emilie Waller MD Jeanette Keith, MD
--- NOTE | 2016-12-05 12:08 | PROGRESS NOTE ---
DATE: 12/03/2016 SUBJECTIVE: The patient wants to go home. No nausea, vomiting, abdominal pain. REVIEW OF SYSTEMS: None reported. OBJECTIVE: Vital signs: Stable. HEENT: Exam within normal limits. Neck: Supple. No JVD. Chest: Clear. Cardiac: Heart sounds are regular. Belly: Soft, nontender. Good bowel sounds. No masses palpable. No peripheral edema or cyanosis. Neurologic: No neurological deficits. ASSESSMENT AND PLAN: 1. Small bowel obstruction, resolving. 2. Acid reflux disease with failed Birgit fundoplication with significant acid reflux disease. Outpatient manometry studies as per Dr. Maria Luisa Rodrigues. Continue on Carafate and PPI. 3. Constipation is improving. 4. Hopefully will be discharged and follow up in my office as well as GI with Dr. Rodrigues. LEVEL OF DOCUMENTATION: Fifteen minutes. cc: MD Enrique Okeefe MD MTDD
== END 2016-12-03 14:31 | disposition home or self-care (01) ==
LOC: ED 17:34 → 4N 23:21
PROVIDERS: ADMIT Surgery; ATTEND Surgery